=== PATIENT | female | born 1955 | race Caucasian/White ===

== ENCOUNTER 2019-11-24 17:33 | Emergency (ER) | payer SELFPAY ==
--- NOTE | 2019-11-24 17:49 | ED.PDOC ---
History of Present Illness - General Time Seen by Provider: 11/24/19 17:37 Source: patient, RN notes reviewed, Vital Signs reviewed, family Exam Limitations: no limitations - History of Present Illness Initial Comments: 64 yo F comes in with sharp right flank pain that started at 3 AM. States she was eating a cookie when the pain started. Radiates to front, no dysuria or heamturia. no hx of stones. associated with nausea, but no emesis today. no diarrhea, no constipation. denies black or bloody bm. Daughter states since the onset of pain, patient has been acting more confused then baseline. no fever, no cough, no chest pain. Denies any recent trauma. no sick contacts. no focal weakness Timing/Duration: other - 15 hours Severity: moderate Improving Factors: nothing Allergies/Adverse Reactions: Allergies Azithromycin [From Z-Stanton] Allergy (Verified 11/24/19 18:02) Cephalexin Allergy (Verified 11/24/19 18:02) Codeine Allergy (Verified 11/24/19 18:02) Dexamethasone [From Decadron] Allergy (Verified 11/24/19 18:02) Erythromycin Allergy (Verified 11/24/19 18:02) Hydrocodone Allergy (Verified 11/24/19 18:02) Latex Allergy (Verified 11/24/19 18:02) Levofloxacin [From Levaquin] Allergy (Verified 11/24/19 18:02) Penicillins Allergy (Verified 11/24/19 18:02) Sulfamethoxazole w/Trimethoprim [From Bactrim] Allergy (Verified 11/24/19 18:02) Home Medications: Ambulatory Orders Clonidine HCl 0.1 mg PO TID 11/24/19 Gabapentin 300 mg PO BEDTIME 11/24/19 Ipratropium-Albuterol [Ipratropium [place]/Albut 0.5-2.5 (3) mg/3Ml] 1 unit INH BID PRN 11/24/19 Review of Systems - Review of Systems Constitutional: Denies: chills, fever EENTM: Denies: eye pain, double vision, nose pain, throat pain, mouth pain Respiratory: Denies: cough, short of breath, stridor Cardiology: Denies: chest pain, edema, palpitations Gastrointestinal/Abdominal: States: nausea, vomiting. Denies: abdominal pain, diarrhea Genitourinary: Denies: dysuria, frequency, hematuria Musculoskeletal: States: back pain. Denies: joint pain, joint swelling, muscle pain Neurological: Denies: headache, numbness, paresthesia, tingling, tremors, weakness Endocrine: Denies: increased urine, unexplained weight gain, unexplained weight loss Hematologic/Lymphatic: Denies: blood clots, easy bleeding, easy bruising Past Medical History (General) - Patient Medical History Hx Seizures: No Hx Stroke: No Hx Dementia: No Hx Asthma: No Hx of COPD: No Hx Cardiac Disorders: No Hx Congestive Heart Failure: No Hx Pacemaker: No Hx Hypertension: Yes Hx Thyroid Disease: No Hx Diabetes: No Hx Gastroesophageal Reflux: No Hx Renal Disease: No Hx Cancer: No Hx of HIV: No Hx Hepatitis B: No Hx Hepatitis C: No Hx MRSA: No 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 Surgical History: appendectomy Family Medical History - Family History Mother Family History: Unknown Physical Exam - Physical Exam General Appearance: Alert, Comfortable, No apparent distress, Well Developed, Well Groomed, Well Hydrated, Well Nourished, Other - steady gait Eye Exam: bilateral normal Ears, Nose, Throat: hearing grossly normal, normal ENT inspection Neck: non-tender, full range of motion, supple, normal inspection Respiratory: chest non-tender, lungs clear, normal breath sounds, no respiratory distress, no accessory muscle use Cardiovascular/Chest: normal peripheral pulses, regular rate, rhythm, no edema, no gallop, no JVD, no murmur Peripheral Pulses: radial,right: 2+, radial,left: 2+, dorsalis pedis,right: 2+, dorsalis pedis,left: 2+ Gastrointestinal/Abdominal: normal bowel sounds, non tender, soft, no organomegaly, no pulsatile mass Rectal Exam: normal exam Back Exam: normal inspection, no CVA tenderness, no vertebral tenderness Extremity: normal range of motion, non-tender, normal inspection, no pedal edema, no calf tenderness, normal capillary refill Neurologic: cotton classer II-XII nml as tested, no motor/sensory deficits, alert, normal mood/affect, oriented x 3 Skin Exam: normal color, warm/dry Progress - Progress Progress: 11/24/19 18:02 Partial ddx: kidney/ureter stone, uti, gallstones, muscle strain, shingles, sbo 11/24/19 18:59 CT head: Scattered bilateral cortical foci of hemorrhage versus evolving dystrophic calcifications are present, and there are regions of decreased attenuation and encephalomalacia suggesting prior insult likely on the basis of small vessel disease. However underlying masses or inflammatory/infectious etiology is also possible and follow-up is recommended. Short-term follow-up is also recommended to exclude expanding hemorrhages. CT abd/pelvis: 1. There is heterogeneous increased density and enlargement of the right adrenal gland with surrounding edema most concerning for acute to subacute hemorrhage. Differential diagnostic considerations include sepsis, DIC, steroid usage and underlying adrenal tumor. 2. 3.2 cm aneurysmal dilatation of the distal abdominal aorta. Recommend CT follow-up in 3 years. 3. 1.2 cm dense right ovarian nodule. Pelvic ultrasound recommended. 4. Lingular atelectasis or pneumonia. 5. Cardiomegaly and small pericardial effusion noted. 11/24/19 20:20 after discussing findings with daughter and patient, patient notes that she has been vomiting blood lately, and she has had a change in her voice. Attempted guiac, but no stool in rectum. She also notes she has a hx of radiation to her face, from facial lymphoma. partial ddx of adrenal hemorrhage include: sepsis, DIC, adrenal tumor, metastatic disease. Lactic acid wnl, patient afebrile and does not appear septic. DDX of dystrophic calcifications include hemorrhage, prior radiation, tumor. will get fibrinogen and coags. The data reviewed when caring for this patient included: nurse notes, prior records, etc. The history and assessments from nurses notes were reviewed and considered, and the patient's home medication list was also reviewed and considered. My assessment and the results of testing completed here in the ED were discussed with the patient/family. All questions were answered, and they express understanding of my assessment and the plan.Emilia Zheng DO #[id number] - EKG/XRAY/CT EKG: Sinus Comments: HR 81, NSR, normal intervals, no acute ischemia, no prior for comparison. Departure - Departure Clinical Impression: Adrenal hemorrhage, Ovarian mass, right, Pericardial effusion, Encephalomalacia on imaging study Anemia Qualifiers: Anemia type: other cause Other causes of anemia: other cause, not classified Qualified Code(s): D64.89 - Other specified anemias ICH (intracerebral hemorrhage) Qualifiers: Intracerebral hemorrhage etiology: nontraumatic Cerebral hemorrhage location: other cerebral location Laterality: unspecified laterality Qualified Code(s): I61.8 - Other nontraumatic intracerebral hemorrhage Time of Disposition: 20:28 Disposition: Transfer to Hospital Condition: Good Referrals: Hilda Vazquez FNP [Primary Care Provider] - 1-2 Weeks Home Medications: Ambulatory Orders Clonidine HCl 0.1 mg PO TID 11/24/19 Gabapentin 300 mg PO BEDTIME 11/24/19 Ipratropium-Albuterol [Ipratropium [place]/Albut 0.5-2.5 (3) mg/3Ml] 1 unit INH BID PRN 11/24/19 Transfer to Outside Facility - Transfer Information Decision to Transfer Date: 11/24/19 Decision to Transfer Time: 18:45 Reason for Transfer: specialized care not available
[2019-11-24 18:00] VITALS: TEMP 98
[2019-11-24] MEDS ORDERED: KETOROLAC TROMETHAMINE INJ 30 MG/ML VIAL IV ONE (18:24)
[2019-11-24] MEDS ORDERED: KETOROLAC TROMETHAMINE INJ 30 MG/ML VIAL IM ONE (18:52)
--- NOTE | 2019-11-24 18:54 | CT ---
EXAM DESCRIPTION: Head CLINICAL HISTORY: confusion COMPARISON: None Available TECHNIQUE: Contiguous axial CT images of the head were obtained. Coronal and sagittal reconstructions were created from the axial data. This exam was performed according to our departmental dose-optimization program, which includes automated exposure control, adjustment of the mA and/or kV according to patient size and/or use of iterative reconstruction technique. FINDINGS: There are multiple scattered bilateral cortical hyperattenuating lesions measure up to 5 mm each diameter concerning for small cortical hemorrhages or dystrophic calcifications. These do not exert significant mass effect on surrounding structures and there are no definite associated masses on noncontrast CT. There is encephalomalacia involving the right frontal lobe. Poorly defined foci of decreased attenuation do not exert significant mass effect on surrounding structures and are likely sequela of prior insult, most likely on the basis of small vessel disease. There is no other evidence of acute mass, mass effect, midline shift or hemorrhage. The ventricles and extra-axial CSF spaces are unremarkable. The brain parenchyma appears otherwise normal for the patient's age. No acute abnormalities of the bones is seen. IMPRESSION: Scattered bilateral cortical foci of hemorrhage versus evolving dystrophic calcifications are present, and there are regions of decreased attenuation and encephalomalacia suggesting prior insult likely on the basis of small vessel disease. However underlying masses or inflammatory/infectious etiology is also possible and follow-up is recommended. Short-term follow-up is also recommended to exclude expanding hemorrhages. MR would provide greater parenchymal detail if desired. Electronically signed by: Denis Hidalgo 11/24/2019 6:53 PM CDT
--- NOTE | 2019-11-24 18:55 | CT ---
EXAM: CT Abdomen and Pelvis Without Intravenous Contrast CLINICAL HISTORY: right flank pain TECHNIQUE: Axial computed tomography images of the abdomen and pelvis without intravenous contrast. Sagittal and coronal reformatted images were created and reviewed. This CT exam was performed using one or more of the following dose reduction techniques: automated exposure control, adjustment of the mA and/or kV according to patient size, and/or use of iterative reconstruction technique. COMPARISON: No relevant prior studies available. FINDINGS: Limitations: None. Lung bases: Triangular lingular consolidation noted. Pleural space: No abnormality noted. Heart: Cardiomegaly and small pericardial effusion noted. Mediastinum: No abnormality noted. ABDOMEN: Liver: Lack of intravenous contrast limits detection of some masses. No abnormality noted. Gallbladder and bile ducts: The gallbladder is partially collapsed and contains at least one small stone. Inflammation not excluded. Pancreas: Lack of intravenous contrast limits detection of some masses. No pancreatic mass, calcification, inflammation or ductal dilation noted. Spleen: No abnormality noted. Adrenals: The left adrenal gland appears normal. There is enlargement and edema of the right adrenal gland which is heterogeneously dense and measures 3.9 x 2.4 x 4.2 cm. Kidneys and ureters: There is a fluid density cortical cyst in the midpole left kidney measuring 1.7 x 1.3 cm. There is mild stranding cranial to the right kidney thought to be related to the adrenal gland. Right kidney otherwise appears normal. Stomach and bowel: No distension or mucosal thickening. No inflammation noted. PELVIS: Appendix: No findings to suggest acute appendicitis. Bladder: Appears normal for the degree of filling. No stones or inflammation. No large mass. Masses may not be detected in the absence of opacification. Reproductive: There is a 1.2 cm diameter dense nodule in the right ovary and small adjacent calcifications. ABDOMEN and PELVIS: Intraperitoneal space: No free air. No significant fluid collection. Bones/joints: No acute change noted. Soft tissues: No abnormality noted. Vasculature: The distal abdominal aorta is aneurysmal to 3.2 cm. Intact atherosclerotic plaque noted. Lymph nodes: No pathologically enlarged lymph nodes. IMPRESSION: 1. There is heterogeneous increased density and enlargement of the right adrenal gland with surrounding edema most concerning for acute to subacute hemorrhage. Differential diagnostic considerations include sepsis, DIC, steroid usage and underlying adrenal tumor. 2. 3.2 cm aneurysmal dilatation of the distal abdominal aorta. Recommend CT follow-up in 3 years. 3. 1.2 cm dense right ovarian nodule. Pelvic ultrasound recommended. 4. Lingular atelectasis or pneumonia. 5. Cardiomegaly and small pericardial effusion noted. Electronically signed by: Ritu Miramontes MD 11/24/2019 6:54 PM CDT
[2019-11-24] MEDS ORDERED: SODIUM CHLORIDE 0.9% 1000ML 1,000 ML IVS PRN (19:08)
[2019-11-24 20:32] VITALS: BP 156/84; O2SAT 99
== END 2019-11-24 20:33 | disposition short-term general hospital (02) ==
LOC: ER 17:33
DX: I61.8 Other nontraumatic intracerebral hemorrhage (principal); D64.89 Other specified anemias; E27.49 Other adrenocortical insufficiency; N83.9 Noninflammatory disorder of ovary, fallopian tube and broad ligament, unspecified; I31.3 Pericardial effusion (noninflammatory); G93.89 Other specified disorders of brain; K92.0 Hematemesis; I10 Essential (primary) hypertension; Z92.23 Personal history of estrogen therapy; Z85.72 Personal history of non-Hodgkin lymphomas; Z90.49 Acquired absence of other specified parts of digestive tract; Z79.899 Other long term (current) drug therapy; Z88.2 Allergy status to sulfonamides; Z88.0 Allergy status to penicillin; Z88.1 Allergy status to other antibiotic agents; Z91.040 Latex allergy status; Z88.5 Allergy status to narcotic agent
CPT/HCPCS: 36415; 70450; 74176; 80053; 81001; 83605; 83690; 84443; 84484; 85025; 85379; 85384; 85610; 85730; 86850; 86900; 86901; 87040; 87086; 93005; J1885; J7030